=== PATIENT | female | born 1940 ===

== ENCOUNTER 2022-08-19 14:34 | Outpatient (REF) | payer MEDICARE, OTHER, SELFPAY | END 2022-08-19 14:35 | disposition home or self-care (01) | LOC: LBN 14:34 | PROVIDERS: Visit Provider Nurse Practitioner Family | DX: N30.01 Acute cystitis with hematuria (principal) | CPT/HCPCS: 87086 ==

== ENCOUNTER 2022-08-26 12:33 | Observation (INO) | payer MEDICARE, OTHER, SELFPAY ==
[2022-08-26] VITALS (81 sets, daily range): BP systolic 95–133; BP diastolic 38–70; PULSE 75–163; RESP 7–30; TEMP 37.4–38.3; O2SAT 93–96
--- NOTE | 2022-08-26 12:15 | RT.EKG_ITS ---
APPROVED REPORT Exam: Resting ECG Reason for Exam: Rapid heart rate Patient Location: E HR:158 bpm ECG Measurements Heart Rate 158 AXIS NM [id number] P 0 QRSd 88 QRS 142 QT 289 T 36 QTc 469 Conclusion Supraventricular tachycardia...V-rate>(220-age), QRSd<120 SVT VS AFlutter
--- NOTE | 2022-08-26 12:45 | DI.RAD_ITS ---
Exam(s) XR PORTABLE CHEST AP EXAM: XR PORTABLE CHEST AP CLINICAL HISTORY: presyncope. TECHNIQUE: 2D digital imaging was performed. COMPARISON: No exams were available for comparison FINDINGS: Single AP portable view. Heart size is upper normal. The mediastinum is not widened. Lungs are clear. No infiltrates nor obvious pleural effusions. No fractures evident. IMPRESSION: No acute pulmonary findings on this single AP portable view of the chest. DATA REPOSITORY: RADIATION DOSE DELIVERED:
[2022-08-26] MEDS: Metoprolol 5 MG/5 ML VIAL IVP (12:54)
[2022-08-26] MEDS: Metoprolol 50 MG TAB PO (12:54)
[2022-08-26] MEDS: Normal Saline 500 ML IV (12:55)
--- NOTE | 2022-08-26 13:00 | RT.EKG_ITS ---
APPROVED REPORT Exam: Resting ECG Reason for Exam: dysrhythmia Patient Location: E HR:81 bpm ECG Measurements Heart Rate 81 AXIS NV 185 P 46 QRSd 89 QRS 113 QT 371 T 67 QTc 430 Conclusion Sinus rhythm...normal P axis, V-rate 60- 99 Probable left atrial enlargement...P >50mS, <-0.10mV V1 Anteroseptal infarct, age indeterminate...Q >35mS, T neg, V1-V2
[2022-08-26 13:18] LABS: Absolute Basophil Count 0.04 10^3/uL (0.0-0.2); Absolute Lymphocyte Count 0.22 10^3/uL (1.2-3.4); Absolute Monocyte Count 0.72 10^3/uL (0.1-0.8); Basophils % 0.2; Eosinophils % 0.7; HCT 41.9 % (36.0-46.0); HGB 14.1 g/dL (11.2-15.7); Lymphocytes % 1.1; MCH 32.4 pg (27.0-33.0); MCHC 33.7 % (32.0-36.0); MCV 96 fL (80-95); MPV 10.8 fL (8.0-11.0); Monocytes % 3.6; Neutrophils % 93.4; Platelet Count 154 10^3/uL (130-400); RBC 4.35 10^6/uL (3.93-5.22); RDW 12.4 % (11.7-14.6); RDW-SD 44.5 fL; WBC 20.13 10^3/uL (4.4-10.8)
[2022-08-26 13:19] LABS: Absolute Eosinophil Count 0.14 10^3/uL (0.0-0.7)
[2022-08-26 13:43] LABS: ALT 25 U/L (14-59); AST 27 U/L (15-37); Albumin 3.4 g/dL (3.4-5.0); Alkaline Phosphatase 66 U/L (46-116); Anion Gap 9.3 mmol/L (3-11); BUN 15 mg/dL (7-18); Bilirubin, Total 0.8 mg/dL (0.2-1.0); CO2 26.7 mmol/L (21.0-32.0); Calcium 8.8 mg/dL (8.5-10.1); Chloride 99 mmol/L (98-107); Estimated GFR 56.25 (mL/min/1.73m2); Glucose 144 mg/dL (74-106); Magnesium 1.8 mg/dL (1.8-2.4); Sodium 135 mmol/L (136-145); TSH (W/Ref FT4) 1.43 uIU/mL (0.36-3.74); Total Protein 7.4 g/dL (6.4-8.2); Troponin I < 50 ng/L (<or=60)
--- NOTE | 2022-08-26 13:45 | DI.CT_ITS ---
Exam(s) CT CHEST PE CTA EXAM: CT CHEST PE CTA CLINICAL HISTORY: elevated ddimer, tachycardia. TECHNIQUE: Imaging Protocol: CT angiography of the chest was performed using pulmonary embolus wilmer col. Multi planar reconstructions were performed. CONTRAST MATERIAL: Intravenous: Omnipaque 350 Contrast volume: 100 cc COMPARISON: CR XR PORTABLE CHEST AP from 08/26/2022 FINDINGS: CHEST: PULMONARY ARTERIES: There are no intraluminal filling defects to suggest acute pulmonary emboli. LUNGS: There is some infiltrate in the inferior lingular segment of the left lung. This appears to b e superimposed upon interstitial disease findings in the lower lobe basal segments. There are no ple ural effusions evident. No significant focal findings in trachea and mainstem bronchi. MEDIASTINUM: No hilar adenopathy. Enlarged subcarinal lymph nodes noted. Visualized thyroid unremar kable. CARDIAC: Heart size is upper normal. There is no pericardial effusion.Caliber of the thoracic aorta is within normal limits. There is no significant shift of the interventricular septum. PARTIALLY VISUALIZED UPPERMOST ABDOMEN: No obvious findings OSSEOUS: No significant osseous lesions.. IMPRESSION: 1. No evidence of acute pulmonary emboli. 2. Small area of infiltrate noted in the lingular segment of the left lung. No pleural effusions. 3. No intrathoracic adenopathy evident. Discussed with ER physician. RADIATION DOSE DELIVERED: 186.09mGy.cm Total DLP DATA REPOSITORY: All CT scans at this facility are submitted to the National Radiology Data Registry (NRDR) Dose Index Registry (DIR) with the [employer] (ACR). RADIATION OPTIMIZATION: All CT scans at this facility use at least one of these dose optimization te chniques: automated exposure control; mA and/or kV adjustment per patient size (includes targeted exa ms where dose is matched to clinical indication); or iterative reconstruction.
[2022-08-26 13:52] LABS: D-Dimer 985 ng/mlFEU (<500)
[2022-08-26 15:18] LABS: Bilirubin Negative (Negative); Blood Trace-intact (Negative); Clarity Clear (Clear); Glucose Negative (Negative); Ketones Trace mg/dL (Negative); Leukocyte Esterase Negative (Negative); Nitrite Negative (Negative); Urobilinogen 0.2 mg/dL (Up to 0.2); pH 7.5 (5-8)
[2022-08-26 15:28] LABS: Bacteria Rare HPF (Negative); C & S Indicated? No; Casts Negative LPF (Negative); Crystals Negative HPF (Negative); Epithelial Cells Rare HPF (Negative); Mucus Negative (Negative); Other Cells Rare Transitional (Negative); RBC 0-2 HPF (0-2); WBC 0-2 HPF (0-5)
[2022-08-26] MEDS: cefTRIAXone 2 GM/50 ML BAG IVPB (15:37)
[2022-08-26] MEDS: Acetaminophen 325 MG TAB 650 MG PO (15:37)
[2022-08-26] MEDS: Azithromycin 250 MG TAB 500 MG PO (15:37)
[2022-08-26 16:16] LABS: Lactate 1.7 mmol/L (0.6-1.4)
--- NOTE | 2022-08-26 16:18 | ED.GENADUL_ITS ---
Discharge Plan Disposition Patient Disposition: Admit to [facility] Discharge Details Clinical Impression: Atrial flutter, Lingular pneumonia, Pre-syncope Admit Date/Time: 08/26/22 15:49 Admit Provider: Winston áSnchez Attending Provider: Winston Sánchez Primary Care Provider: Unknown,Unknown ED Provider: Hilda Joyce Discharge Data Discharge Date/Time-TO BE ENTERED AT DEPARTURE: 08/26/22 16:58 Medical Decision Making 81-year-old female with majority of her care comfortably with primary care session presents for report of presyncopal event, presents tachycardic, history of a flutter milligrams of IV metoprolol administered patient 15 mg p.o. which she reports patient is in normal sinus rhythm, blood pressure stable Lungs clear to auscultation, alert and oriented, appears weak and tired, cardiac rate initially tachycardic and irregular, no murmur, no peripheral edema, no calf swelling or tenderness, distal pulses intact, no abdominal tenderness, no rebound or guarding Chest x-ray I was ordered initially for further evaluation and does not show evidence of acute abnormality, D-dimer was elevated so did order CTA of patient's chest patient is a prior Dr. Anaya interpretation and discussion Leukocytosis, 29, left shift 18, lactate pending Temperature on reassessment 102 tympanically We will order IV antibiotics, ceftriaxone and azithromycin Agreeable to admission at this time, wishes to be full code but declines any extensive resuscitation HPI General Date/Time Provider Initiated Documentation: 08/26/22 12:46 . HPI Narrative: This 81-year-old female with past medical history of hypertension and atrial flutter presents with report of fever today followed by presyncopal event, significant tachycardia reported by EMS. States recently treated for urinary tract infection on Macrobid which she completed yesterday. Currently having palpitations but denies any chest pain or shortness of breath. Denies any nausea or vomiting. Denies any urinary complaints or abdominal pain. States she feels very weak. Reports chills. Related Data Home Medications Medication Instructions Recorded Confirmed amlodipine 5 mg tablet 5 mg PO DAILY 08/26/22 08/26/22 metoprolol tartrate 25 mg tablet 25 mg PO DAILY 08/26/22 08/26/22 olmesartan 20 mg tablet 20 mg PO DAILY 08/26/22 08/26/22 cefpodoxime 200 mg tablet 200 mg PO BID #10 tabs 08/27/22 Previous Rx's Medication Instructions Recorded cefpodoxime 200 mg tablet 200 mg PO BID #10 tabs 08/27/22 Allergies Allergy/AdvReac Type Severity Reaction Status Date / Time doxycycline AdvReac Unverified 08/26/22 12:50 General Stated Complaint: Arrhythmia DEMETRIUS: 2 PFSH All Active Problems (Updated 08/27/22 @ 23:28 by DIONI Perrin) Loose stools (Acute) Pre-syncope (Acute) Lingular pneumonia (Acute) Essential hypertension (Acute) Atrial flutter (Acute) Social History Smoking/Tobacco Use Status: Former Tobacco Use Quit Date: 02/16/74 Smoking risk assessment performed?: Yes Alcohol Intake: current Alcohol Intake frequency: holidays/special occasions on ly Drug use: Never Substance use type: does not use Housing: apartment Do you feel safe at home: Yes Do you feel safe in your relationship?: Yes Course Vital Signs Vital signs: Vital Signs Pulse 158 H 08/26/22 12:37 Respiratory Rate 18 08/26/22 12:37 Blood Pressure 122/70 08/26/22 12:37 Pulse Oximetry 95 08/26/22 12:37 Pulse 160 H 08/26/22 12:54 Respiratory Rate 18 08/26/22 12:37 Respiratory Effort Normal 08/26/22 14:07 Blood Pressure 122/70 08/26/22 12:54 Blood Pressure Position Supine 08/26/22 12:37 Pulse Oximetry 95 08/26/22 12:37 Oxygen Delivery Method Room Air 08/26/22 12:37 Oxygen Flow Rate 0 08/26/22 12:37 Lab/Test Results Lab/Test Results: 08/26/22 14:15 Blood Blood Culture - Pending 08/26/22 14:00 Blood Blood Culture - Pending Laboratory Tests Range/Units 08/26/22 08/26/22 08/26/22 13:00 13:00 13:00 WBC (4.4-10.8) 10^3/uL 20.13 H RBC (3.93-5.22) 10^6/uL 4.35 Hgb (11.2-15.7) g/dL 14.1 Hct (36.0-46.0) % 41.9 MCV (80-95) fL 96 H MCH (27.0-33.0) pg 32.4 MCHC (32.0-36.0) % 33.7 RDW (11.7-14.6) % 12.4 Plt Count (130-400) 10^3/uL 154 MPV (8.0-11.0) fL 10.8 Immature Gran % 1.0 Neutrophils % 93.4 Lymphocytes % 1.1 Monocytes % 3.6 Eosinophils % 0.7 Basophils % 0.2 Nucleated RBC % (0.0-0.3) % 0.0 Absolute Neutrophils (1.2-6.7) 10^3/uL 18.80 H Absolute Lymphocytes (1.2-3.4) 10^3/uL 0.22 L Absolute Monocytes (0.1-0.8) 10^3/uL 0.72 Absolute Eosinophils (0.0-0.7) 10^3/uL 0.14 Absolute Basophils (0.0-0.2) 10^3/uL 0.04 D-Dimer (<500) ng/mlFEU 985 H Sodium (136-145) mmol/L 135 L Potassium (3.5-5.1) mmol/L 4.0 Chloride (98-107) mmol/L 99 Carbon Dioxide (21.0-32.0) mmol/L 26.7 Anion Gap (3-11) mmol/L 9.3 BUN (7-18) mg/dL 15 Creatinine (0.55-1.02) mg/dL 1.0 Est GFR (CKD-EPI 2020) (mL/min/1.73m2) 56.25 Glucose (74-106) mg/dL 144 H Calcium (8.5-10.1) mg/dL 8.8 Magnesium (1.8-2.4) mg/dL 1.8 Total Bilirubin (0.2-1.0) mg/dL 0.8 AST (15-37) U/L 27 ALT (14-59) U/L 25 Alkaline Phosphatase (46-116) U/L 66 Troponin I (<or=60) ng/L < 50 Total Protein (6.4-8.2) g/dL 7.4 Albumin (3.4-5.0) g/dL 3.4 TSH (0.36-3.74) uIU/mL 1.43 Urine Color (Yellow) Urine Clarity (Clear) Urine pH (5-8) Ur Specific [place] (1.005-1.025) Urine Protein (Negative) mg/dL Urine Ketones (Negative) mg/dL Urine Blood (Negative) Urine Nitrite (Negative) Urine Bilirubin (Negative) Urine Urobilinogen (Up to 0.2) mg/dL Ur Leukocyte Esterase (Negative) Urine RBC (0-2) HPF Urine WBC (0-5) HPF Ur Epithelial Cells (Negative) HPF Urine Crystals (Negative) HPF Urine Bacteria (Negative) HPF Urine Casts (Negative) LPF Urine Mucus (Negative) Urine Other (Negative) Ur Culture Indicated? Urine Glucose (Negative) mg/dL Range/Units 08/26/22 14:59 WBC (4.4-10.8) 10^3/uL RBC (3.93-5.22) 10^6/uL Hgb (11.2-15.7) g/dL Hct (36.0-46.0) % MCV (80-95) fL MCH (27.0-33.0) pg MCHC (32.0-36.0) % RDW (11.7-14.6) % Plt Count (130-400) 10^3/uL MPV (8.0-11.0) fL Immature Gran % Neutrophils % Lymphocytes % Monocytes % Eosinophils % Basophils % Nucleated RBC % (0.0-0.3) % Absolute Neutrophils (1.2-6.7) 10^3/uL Absolute Lymphocytes (1.2-3.4) 10^3/uL Absolute Monocytes (0.1-0.8) 10^3/uL Absolute Eosinophils (0.0-0.7) 10^3/uL Absolute Basophils (0.0-0.2) 10^3/uL D-Dimer (<500) ng/mlFEU Sodium (136-145) mmol/L Potassium (3.5-5.1) mmol/L Chloride (98-107) mmol/L Carbon Dioxide (21.0-32.0) mmol/L Anion Gap (3-11) mmol/L BUN (7-18) mg/dL Creatinine (0.55-1.02) mg/dL Est GFR (CKD-EPI 2020) (mL/min/1.73m2) Glucose (74-106) mg/dL Calcium (8.5-10.1) mg/dL Magnesium (1.8-2.4) mg/dL Total Bilirubin (0.2-1.0) mg/dL AST (15-37) U/L ALT (14-59) U/L Alkaline Phosphatase (46-116) U/L Troponin I (<or=60) ng/L Total Protein (6.4-8.2) g/dL Albumin (3.4-5.0) g/dL TSH (0.36-3.74) uIU/mL Urine Color (Yellow) Yellow Urine Clarity (Clear) Clear Urine pH (5-8) 7.5 Ur Specific [place] (1.005-1.025) 1.010 Urine Protein (Negative) mg/dL Negative Urine Ketones (Negative) mg/dL Trace H Urine Blood (Negative) Trace-intact H Urine Nitrite (Negative) Negative Urine Bilirubin (Negative) Negative Urine Urobilinogen (Up to 0.2) mg/dL 0.2 Ur Leukocyte Esterase (Negative) Negative Urine RBC (0-2) HPF 0-2 Urine WBC (0-5) HPF 0-2 Ur Epithelial Cells (Negative) HPF Rare Urine Crystals (Negative) HPF Negative Urine Bacteria (Negative) HPF Rare Urine Casts (Negative) LPF Negative Urine Mucus (Negative) Negative Urine Other (Negative) Rare Transitional Ur Culture Indicated? No Urine Glucose (Negative) mg/dL Negative Critical Care Time Critical Care Time Attestation: Approximately 45 minutes of critical care time secondary to antibiotics, admission to the hospital, diagnostic lab interpretation, diagnostic imaging interpretation, metoprolol for atrial fibrillation, RVR, oral metoprolol, telemetry monitoring PAWSS Have you Been Recently Intoxicated or Drunk Within the Last 30 days?: No Have you Ever Experienced Previous Episodes of Alcohol Withdrawal?: No Have you ever Experienced Withdrawal Seizures?: No Have you ever Experienced Delirium Tremens(DT)s?: No Have you ever undergone Alcohol Rehabilitation Treatment (i.e, inpt ot outpatient treatment programs)?: No Have you ever Experienced Blackouts?: No Have you ever Combined Alcohol with other Downers within the last 90 days?: No Have you ever Combined Alcohol with any other Substance of Abuse during the last 90 days?: No Result: 0
[2022-08-26 16:24] LABS: Source Nasal/Nares
[2022-08-26 16:44] LABS: Troponin I < 50 ng/L (<or=60)
[2022-08-26 17:06] LABS: COVID-19 PCR Negative (Negative)
--- NOTE | 2022-08-26 18:42 | W.PM.HP.N ---
Date of service: 08/26/22 Time of Service: 18:42 Assessment and Plan Assessment and plan (1) Atrial flutter: Status: Acute Assessment and plan: She has short paroxysms of palpitations occasionally. Cont her home daily metoprolol 25mg. PRN IV lopressor 2.5mg Q4H prn HR > 110. She is receiving IV LR at 150ml/hr for 1L. Electrolyes were normal. Telemetry. (2) Essential hypertension: Status: Acute Assessment and plan: Cont amlodipine and metoprolol. She takes olmesartab but it isn't formulary and she doesn't have it with her. BP is controlled currently so will not give a substitute ARB at this time. Monitor. (3) Lingular pneumonia: Status: Acute Assessment and plan: Fever, WBC count of 20.13. No shortness of air, hypoxemia, cough. Cont rocephin and azithromycin. Anticipate d/c to home tomorrow on oral antibiotic. (4) Pre-syncope: Status: Acute Assessment and plan: Related to aflutter with rapid ventricular response and PNA. Given acetaminophen and feeling much better. Receiving 1L LR. History of Present Illness History of Present Illness Chief Complaint: Presyncope, fever Narrative: This is an 81 yo female with a PMH of HTN, paroxysmal aflutter. She noted developing a fever on day of admission and subsequently felt like she was going to passout. She did not have a syncopal episode. She did not palpitations. EMS noted tachycardia. She had no cough/congestion, shortness of air, N/V/abd pain, dysuria or urinary frequency. HR was 156. EKG showed SVT vs Aflutter. WBC count 20.13. Hgb 14.1. Lactate 1.7. Creatinine 1.0. Troponin negative. CXR w/o acute findings. CT chest No evidence of acute pulmonary emboli. Small area of infiltrate noted in the lingular segment of the left lung.? No pleural effusions. She was administered oral and IV metoprolol and her rate improved into the 80's-90's. She was not experiencing any presyncopal symptoms. Review of Systems All systems reviewed & are unremarkable except as noted in HPI and below PFSH All Active Problems (Updated 08/26/22 @ 19:05 by Winston Sánchez MD) Pre-syncope (Acute) Lingular pneumonia (Acute) Essential hypertension (Acute) Atrial flutter (Acute) Social History Smoking/Tobacco Use Status: Former Tobacco Use Quit Date: 02/16/74 Smoking risk assessment performed?: Yes Alcohol Intake: current Alcohol Intake frequency: holidays/special occasions only Drug use: Never Substance use type: does not use Housing: apartment Do you feel safe at home: Yes Do you feel safe in your relationship?: Yes Meds Allergies and Home Medications Allergies Allergy/AdvReac Type Severity Reaction Status Date / Time doxycycline AdvReac Unverified 08/26/22 12:50 Home Medications Medication Instructions Recorded Confirmed Type amlodipine 5 mg tablet 5 mg PO DAILY 08/26/22 08/26/22 History metoprolol tartrate 25 mg tablet 25 mg PO DAILY 08/26/22 08/26/22 History olmesartan 20 mg tablet 20 mg PO DAILY 08/26/22 08/26/22 History Exam Narrative Exam Narrative: Gen: Very pleasant female sitting on edge of bed. Conversant. HEENT: sclera clear. MMM. Neck: small submandibular lymph nodes; NT. Lungs: clear. Good air excursion. Nonlabored breathing. CV: RRR Exts: No edema, calf tenderness. Psych: A&O x 3. Affect appropriate. Good insight. Results Labs 08/26/22 13:00 08/26/22 13:00 Labs: Laboratory Results - last 24 hr 08/26/22 08/26/22 08/26/22 13:00 13:00 13:00 WBC 20.13 H RBC 4.35 Hgb 14.1 Hct 41.9 MCV 96 H MCH 32.4 MCHC 33.7 RDW 12.4 Plt Count 154 MPV 10.8 Immature Gran % 1.0 Neutrophils % 93.4 Lymphocytes % 1.1 Monocytes % 3.6 Eosinophils % 0.7 Basophils % 0.2 Nucleated RBC % 0.0 Absolute Neutrophils 18.80 H Absolute Lymphocytes 0.22 L Absolute Monocytes 0.72 Absolute Eosinophils 0.14 Absolute Basophils 0.04 D-Dimer 985 H VBG Lactate Sodium 135 L Potassium 4.0 Chloride 99 Carbon Dioxide 26.7 Anion Gap 9.3 BUN 15 Creatinine 1.0 Est GFR (CKD-EPI 2020) 56.25 Glucose 144 H Calcium 8.8 Magnesium 1.8 Total Bilirubin 0.8 AST 27 ALT 25 Alkaline Phosphatase 66 Troponin I < 50 Total Protein 7.4 Albumin 3.4 TSH 1.43 Urine Color Urine Clarity Urine pH Ur Specific [place] Urine Protein Urine Ketones Urine Blood Urine Nitrite Urine Bilirubin Urine Urobilinogen Ur Leukocyte Esterase Urine RBC Urine WBC Ur Epithelial Cells Urine Crystals Urine Bacteria Urine Casts Urine Mucus Urine Other Ur Culture Indicated? Urine Glucose COVID-19 Source SARS-CoV-2 (PCR) 08/26/22 08/26/22 08/26/22 14:59 16:07 16:07 WBC RBC Hgb Hct MCV MCH MCHC RDW Plt Count MPV Immature Gran % Neutrophils % Lymphocytes % Monocytes % Eosinophils % Basophils % Nucleated RBC % Absolute Neutrophils Absolute Lymphocytes Absolute Monocytes Absolute Eosinophils Absolute Basophils D-Dimer VBG Lactate 1.7 H Sodium Potassium Chloride Carbon Dioxide Anion Gap BUN Creatinine Est GFR (CKD-EPI 2020) Glucose Calcium Magnesium Total Bilirubin AST ALT Alkaline Phosphatase Troponin I < 50 Total Protein Albumin TSH Urine Color Yellow Urine Clarity Clear Urine pH 7.5 Ur Specific [place] 1.010 Urine Protein Negative Urine Ketones Trace H Urine Blood Trace-intact H Urine Nitrite Negative Urine Bilirubin Negative Urine Urobilinogen 0.2 Ur Leukocyte Esterase Negative Urine RBC 0-2 Urine WBC 0-2 Ur Epithelial Cells Rare Urine Crystals Negative Urine Bacteria Rare Urine Casts Negative Urine Mucus Negative Urine Other Rare Transitional Ur Culture Indicated? No Urine Glucose Negative COVID-19 Source SARS-CoV-2 (PCR) 08/26/22 16:12 WBC RBC Hgb Hct MCV MCH MCHC RDW Plt Count MPV Immature Gran % Neutrophils % Lymphocytes % Monocytes % Eosinophils % Basophils % Nucleated RBC % Absolute Neutrophils Absolute Lymphocytes Absolute Monocytes Absolute Eosinophils Absolute Basophils D-Dimer VBG Lactate Sodium Potassium Chloride Carbon Dioxide Anion Gap BUN Creatinine Est GFR (CKD-EPI 2020) Glucose Calcium Magnesium Total Bilirubin AST ALT Alkaline Phosphatase Troponin I Total Protein Albumin TSH Urine Color Urine Clarity Urine pH Ur Specific [place] Urine Protein Urine Ketones Urine Blood Urine Nitrite Urine Bilirubin Urine Urobilinogen Ur Leukocyte Esterase Urine RBC Urine WBC Ur Epithelial Cells Urine Crystals Urine Bacteria Urine Casts Urine Mucus Urine Other Ur Culture Indicated? Urine Glucose COVID-19 Source Nasal/Nares SARS-CoV-2 (PCR) Negative Last Vital Signs Temp 38.3 C H 08/26/22 17:15 Pulse 89 08/26/22 17:26 Resp 18 08/26/22 17:15 BP 121/65 08/26/22 17:15 Pulse Ox 93 08/26/22 17:15 PAWSS Have you Been Recently Intoxicated or Drunk Within the Last 30 days?: No Have you Ever Experienced Previous Episodes of Alcohol Withdrawal?: No Have you ever Experienced Withdrawal Seizures?: No Have you ever Experienced Delirium Tremens(DT)s?: No Have you ever undergone Alcohol Rehabilitation Treatment (i.e, inpt ot outpatient treatment programs)?: No Have you ever Experienced Blackouts?: No Have you ever Combined Alcohol with other Downers within the last 90 days?: No Have you ever Combined Alcohol with any other Substance of Abuse during the last 90 days?: No Result: 0 Time Spent Time spent with Patient: 40-54 minutes Time was spent: preparing to see the patient(eg.review tests), obtaining and/or reviewing separately otained hiistory, ordering medications,tests, procedures, referring, communicating with other health patient care manager, indepentently interpreting results and counseling the patient
[2022-08-26] MEDS: Acetaminophen 325 MG TAB PO (19:43)
[2022-08-26] MEDS: Zolpidem 5 MG TAB 2.5 MG PO (21:18)
[2022-08-26] MEDS: Lactated Ringers 1,000 ML 150 ML IV (21:18)
[2022-08-27] VITALS (15 sets, daily range): BP systolic 96–131; BP diastolic 53–67; PULSE 83–152; RESP 16–18; TEMP 37.2–37.4; O2SAT 86–94
[2022-08-27] MEDS: cefTRIAXone 2 GM/50 ML BAG IVPB (06:00)
[2022-08-27 07:29] LABS: Abs Immature Grans 0.06 10^3/uL (0.0-0.06); Absolute Basophil Count 0.02 10^3/uL (0.0-0.2); Absolute Eosinophil Count 0.27 10^3/uL (0.0-0.7); Absolute Lymphocyte Count 0.71 10^3/uL (1.2-3.4); Absolute Monocyte Count 0.46 10^3/uL (0.1-0.8); Absolute Neutrophil Count 9.43 10^3/uL (1.2-6.7); Basophils % 0.2; Eosinophils % 2.5; HCT 35.6 % (36.0-46.0); HGB 11.8 g/dL (11.2-15.7); Immature Grans % 0.5; Lymphocytes % 6.5; MCH 32.1 pg (27.0-33.0); MCHC 33.1 % (32.0-36.0); MCV 97 fL (80-95); Monocytes % 4.2; Neutrophils % 86.1; Platelet Count 134 10^3/uL (130-400); RBC 3.68 10^6/uL (3.93-5.22); RDW 12.7 % (11.7-14.6); RDW-SD 45.5 fL; WBC 10.95 10^3/uL (4.4-10.8)
[2022-08-27] MEDS: Metoprolol 25 MG TAB PO (07:46)
[2022-08-27] MEDS: Acetaminophen 325 MG TAB PO (07:46)
[2022-08-27] MEDS: Azithromycin 250 MG TAB 500 MG PO (07:46)
[2022-08-27] MEDS: amLODIPine 5 MG TAB PO (07:47)
[2022-08-27] MEDS: Normal Saline 250 ML 500 ML IV (08:11)
[2022-08-27] MEDS: Normal Saline 250 ML IV (09:05)
--- NOTE | 2022-08-27 09:33 | PDOC.CMIN ---
Date of service: 08/27/22 Time of Service: 09:33 Care Management Initial Assmt Initial Assessment REASON FOR HOSPITALIZATION:: atrial flutter PREVIOUS FUNCTIONAL STATUS/SOCIAL/FAMILY SUPPORTS:: Shahnaz lives in [place], [place]. but has a camp in [place] where she spends time in the summer. She is . Shahnaz has 4 children who all live in different locales; one is in [place], one in [place], one in [place] and one in [place]. Shahnaz's late was a diplomat and they lived all over the world, including [place] and [place]. She shared that it was an interesting and exciting life. Shahnaz is independent at baseline and does not receive any community services. CURRENT FUNCTIONAL STATUS:: Shahnaz was sitting up in bed when CM met with her. She was pleasant in interaction and agreeable to conversation. 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 At baseline she is healthy and active and enjoys spending time at her camp in [place]. Shahnaz shared that she hopes to be discharged later today. This is the first time she has ever been hospitalized and stated that she has had a good experience at [facility]. ADVANCE DIRECTIVES:: none on file Has patient been provided with info about the portal/API?: No Did the patient sign up for the portal?: No CODE STATUS:: Full Code INSURANCE COVERAGE / FINANCIAL ISSUES:: Medicare Foreign Service Benefit Plan CURRENT HOME/COMMUNITY SERVICES/EQUIPMENT:: none PRIMARY CARE PHYSICIAN:: none local POTENTIAL DISCHARGE NEEDS:: follow up with community providers and plan of care PATIENT/FAMILY EDUCATION NEEDS:: Review of discharge instructions, limitations, activity, diet, medications, follow up plan, discuss Ask Me Three TRANSPORTATION:: via private vehicle with daughter PLAN:: Anticipate Shahnaz will be discharged to her daughter's home in [place] with no new services. She will follow up with her community providers and plan of care and transport with family. CM will follow and assess for discharge planning concerns. PFSH All Active Problems (Updated 08/26/22 @ 19:05 by Winston Sánchez MD) Pre-syncope (Acute) Lingular pneumonia (Acute) Essential hypertension (Acute) Atrial flutter (Acute) Social History Smoking/Tobacco Use Status: Former Tobacco Use Quit Date: 02/16/74 Smoking risk assessment performed?: Yes Alcohol Intake: current Alcohol Intake frequency: holidays/special occasions only Drug use: Never Substance use type: does not use Housing: apartment Do you feel safe at home: Yes Do you feel safe in your relationship?: Yes
[2022-08-27 11:28] LABS: C Diff PCR Negative (Negative)
--- NOTE | 2022-08-27 13:20 | CMDISCH_ITS ---
Date of service: 08/27/22 Time of Service: 13:20 LACE Index Scoring Tool Questions: Length of Stay (in days): 1 Was the patient admitted via the E.D.?: Yes E.D. Visits: 1 Answers: Total Score: 5 Risk of Readmission: Low Risk Care Management Discharge Plan Reason for Hospitalization: atrial flutter Discharge Plan: Anticipate Shahnaz will be discharged to her daughter's home in [place] with no new services. She will follow up with her community providers and plan of care and transport with family. CM will follow and assess for discharge planning concerns. Patient/Family Education Needs: Review of discharge instructions, limitations, activity, diet, medications, follow up plan, discuss Ask Me Three
--- NOTE | 2022-08-27 13:27 | DSE_ITS ---
Date of service: 08/27/22 Time of Service: 13:30 DS: Diagnosis Discharge Diagnosis (1) Atrial flutter: Status: Acute Asessment and Plan: She converted to NSR soon after admission. In the night she did have a period of SVT that was brief and then back to NSR Cont metoprolol. Maintain adequate hydration. LIkely related to mild dehydration and current pneumonia. (2) Essential hypertension: Status: Acute Asessment and Plan: Cont home meds: metoprolol, Olmesartan, amlodapine. (3) Lingular pneumonia: Status: Acute Asessment and Plan: Initiated on Rocephin and oral azithromycin; received 2 doses of each. WBC count near normal at 10.95 on day of discharge. Initial WBC count of 20.13. Home on a 5 day course of cefpodoxime 200mg BID. (4) Pre-syncope: Status: Acute Asessment and Plan: Related to rapid afib/flutter. No recurrence. Cont metoprolol for rate control. Not on anticoagulation; can discuss this with PCP. (5) Loose stools: Status: Acute Asessment and Plan: Loose stools. Onset in the morning on day of discharge. X3 stools then stopped. C.Diff negative. If recurs, immodium could be helpful. Maintain good fluid replacement if this does become more of an issue. Discharge Plan Disposition Patient Disposition: Home Condition: Improving Discharge Details Reason For Visit: Pneumonia Admit Date/Time: 08/26/22 15:49 Admit Provider: Winston Sánchez Attending Provider: Winston Sánchez Primary Care Provider: Unknown,Unknown Hospital Course Hospital Course: This is an 81 yo female with a PMH of HTN, paroxysmal aflutter.? She noted developing a fever on day of admission and subsequently felt like she was going to passout.? She did not have a syncopal episode.? She did not palpitations.? EMS noted tachycardia. She had no cough/congestion, shortness of air, N/V/abd pain, dysuria or urinary frequency. HR was 156.? EKG showed SVT vs Aflutter. WBC count 20.13. Hgb 14.1.? Lactate 1.7. Creatinine 1.0. Troponin negative. CXR w/o acute findings.? CT chest?No evidence of acute pulmonary emboli. Small area of infiltrate noted in the lingular segment of the left lung.? No pleural effusions. She was administered oral and IV metoprolol and her rate improved into the 80's-90's.? She was not experiencing any presyncopal symptoms. See Diagnosis Home Meds and New Rx's Prescriptions: New cefpodoxime 200 mg tablet 200 mg PO BID Qty: 10 0RF Rx Instructions: must administer with a meal/food First dose the morning of 08/28/22. Continued amlodipine 5 mg Tablet 5 mg PO DAILY olmesartan 20 mg Tablet 20 mg PO DAILY metoprolol tartrate 25 mg Tablet 25 mg PO DAILY Discharge Instructions Instructions: Community Acquired Pneumonia (GEN) Activity:: Activity as Tolerated Equipment/Supplies:: No Equipment Needed Diet:: Resume usual diet Discharge Orders Discharge Orders: Discharge Order (Routine); Ordered 08/27/22 Ordered By: Winston Sánchez DS: Summary Time Spent with Patient providing and/or coordinating discharge services: Greater than 30 minutes Status at Discharge Functional status at discharge: independent ambulation Overall status at discharge: patient is progressing back to baseline Mental Status: mental status grossly normal Speech and Movement: speech and movement normal Mood: congruent mood Affect: normal affect Exam Narrative Exam Narrative: Gen: Very pleasant female sitting in chair. NAD HEENT: sclera clear. MMM. Neck: small submandibular lymph nodes; NT. Lungs: clear. Good air excursion. Nonlabored breathing. CV: RRR Exts: No edema, calf tenderness. Psych: A&O x 3. Affect appropriate. Good insight. Psych Mental Status: mental status grossly normal Speech and Movement: speech and movement normal Mood: congruent mood Affect: normal affect DS: Data Vitals/I&O Vitals and I&O: Vital Signs Temperature 37.4 C 08/27/22 12:24 Temperature Source Tympanic 08/27/22 12:24 Pulse 83 08/27/22 12:24 Pulse Rhythm Regular 08/27/22 08:00 Pulse 88 08/27/22 01:10 Respiratory Rate 17 08/27/22 12:24 Respiratory Effort Normal, Non-Labored 08/27/22 08:00 Respiratory Depth Normal 08/27/22 08:00 Respiratory Pattern Normal 08/27/22 08:00 Blood Pressure 103/57 L 08/27/22 12:24 Blood Pressure Mean 59 08/26/22 16:45 Blood Pressure Position Supine 08/26/22 12:37 Pulse Oximetry 91 L 08/27/22 12:24 Oxygen Delivery Method Room Air 08/27/22 12:24 Oxygen Flow Rate 0 08/27/22 12:24 Pain Level 0 08/27/22 12:24 Intake & Output 08/26/22 08/27/22 08/27/22 23:59 11:59 23:59 Intake Total 560 / 560 1722.5 / 1722.5 Balance 560 / 560 1722.5 / 1722.5 Weight 51.71 kg Intake: IV 560 / 560 1352.5 / 1352.5 Oral 370 / 370 Data Completed and Pending Labs on day of discharge: Labs from last 24 hours 08/27/22 08/27/22 08/26/22 10:20 06:40 16:12 WBC 10.95 H RBC 3.68 L Hgb 11.8 D Hct 35.6 L MCV 97 H MCH 32.1 MCHC 33.1 RDW 12.7 Plt Count 134 MPV 11.0 Immature Gran % 0.5 Neutrophils % 86.1 Lymphocytes % 6.5 Monocytes % 4.2 Eosinophils % 2.5 Basophils % 0.2 Nucleated RBC % 0.0 Absolute Neutrophils 9.43 H Absolute Lymphocytes 0.71 L Absolute Monocytes 0.46 Absolute Eosinophils 0.27 Absolute Basophils 0.02 D-Dimer VBG Lactate Sodium Potassium Chloride Carbon Dioxide Anion Gap BUN Creatinine Est GFR (CKD-EPI 2020) Glucose Calcium Magnesium Total Bilirubin AST ALT Alkaline Phosphatase Troponin I Total Protein Albumin TSH Urine Color Urine Clarity Urine pH Ur Specific [place] Urine Protein Urine Ketones Urine Blood Urine Nitrite Urine Bilirubin Urine Urobilinogen Ur Leukocyte Esterase Urine RBC Urine WBC Ur Epithelial Cells Urine Crystals Urine Bacteria Urine Casts Urine Mucus Urine Other Ur Culture Indicated? Urine Glucose Stl C.difficile Tox PCR Negative COVID-19 Source Nasal/Nares SARS-CoV-2 (PCR) Negative 08/26/22 08/26/22 08/26/22 16:07 16:07 14:59 WBC RBC Hgb Hct MCV MCH MCHC RDW Plt Count MPV Immature Gran % Neutrophils % Lymphocytes % Monocytes % Eosinophils % Basophils % Nucleated RBC % Absolute Neutrophils Absolute Lymphocytes Absolute Monocytes Absolute Eosinophils Absolute Basophils D-Dimer VBG Lactate 1.7 H Sodium Potassium Chloride Carbon Dioxide Anion Gap BUN Creatinine Est GFR (CKD-EPI 2020) Glucose Calcium Magnesium Total Bilirubin AST ALT Alkaline Phosphatase Troponin I < 50 Total Protein Albumin TSH Urine Color Yellow Urine Clarity Clear Urine pH 7.5 Ur Specific [place] 1.010 Urine Protein Negative Urine Ketones Trace H Urine Blood Trace-intact H Urine Nitrite Negative Urine Bilirubin Negative Urine Urobilinogen 0.2 Ur Leukocyte Esterase Negative Urine RBC 0-2 Urine WBC 0-2 Ur Epithelial Cells Rare Urine Crystals Negative Urine Bacteria Rare Urine Casts Negative Urine Mucus Negative Urine Other Rare Transitional Ur Culture Indicated? No Urine Glucose Negative Stl C.difficile Tox PCR COVID-19 Source SARS-CoV-2 (PCR) 08/26/22 08/26/22 13:00 13:00 WBC RBC Hgb Hct MCV MCH MCHC RDW Plt Count MPV Immature Gran % Neutrophils % Lymphocytes % Monocytes % Eosinophils % Basophils % Nucleated RBC % Absolute Neutrophils Absolute Lymphocytes Absolute Monocytes Absolute Eosinophils Absolute Basophils D-Dimer 985 H VBG Lactate Sodium 135 L Potassium 4.0 Chloride 99 Carbon Dioxide 26.7 Anion Gap 9.3 BUN 15 Creatinine 1.0 Est GFR (CKD-EPI 2020) 56.25 Glucose 144 H Calcium 8.8 Magnesium 1.8 Total Bilirubin 0.8 AST 27 ALT 25 Alkaline Phosphatase 66 Troponin I < 50 Total Protein 7.4 Albumin 3.4 TSH 1.43 Urine Color Urine Clarity Urine pH Ur Specific [place] Urine Protein Urine Ketones Urine Blood Urine Nitrite Urine Bilirubin Urine Urobilinogen Ur Leukocyte Esterase Urine RBC Urine WBC Ur Epithelial Cells Urine Crystals Urine Bacteria Urine Casts Urine Mucus Urine Other Ur Culture Indicated? Urine Glucose Stl C.difficile Tox PCR COVID-19 Source SARS-CoV-2 (PCR) 08/26/22 14:15 Blood Blood Culture - Pending 08/26/22 14:00 Blood Blood Culture - Pending Preliminary micro results at discharge 08/26/22 14:15 Blood Culture - Pending Blood 08/26/22 14:00 Blood Culture - Pending Blood PFSH All Active Problems (Updated 08/27/22 @ 13:49 by Winston Sánchez MD) Loose stools (Acute) Pre-syncope (Acute) Lingular pneumonia (Acute) Essential hypertension (Acute) Atrial flutter (Acute) Social History Smoking/Tobacco Use Status: Former Tobacco Use Quit Date: 02/16/74 Smoking risk assessment performed?: Yes Alcohol Intake: current Alcohol Intake frequency: holidays/special occasions only Drug use: Never Substance use type: does not use Housing: apartment Do you feel safe at home: Yes Do you feel safe in your relationship?: Yes Time Spent with Patient Time Spent with Patient: 45-69 minutes Time was spent: preparing to see the patient(eg.review tests), obtaining and/or reviewing separately otained hiistory, ordering medications,tests, procedures, referring, communicating with other health neonatal intensive care nurse, indepentently interpreting results, counseling the patient and care coordination
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
== END 2022-08-27 16:13 | disposition home or self-care (01) ==
LOC: ER 15:17 → MS 17:05
PROVIDERS: Admitting Provider Family Medicine; Emergency Provider Physician Assistant; Visit Provider Family Medicine
DX: I48.92 Unspecified atrial flutter (principal); R53.1 Weakness; I10 Essential (primary) hypertension; J18.9 Pneumonia, unspecified organism; R55 Syncope and collapse; I47.1 Supraventricular tachycardia; I25.2 Old myocardial infarction; R19.7 Diarrhea, unspecified
CPT/HCPCS: 36415; 71275; 80053; 87040; 87493; 87635; 93005; 96361; 96365; 96374; 96375; 96376; 99291; 71045; 81003; 81015; 83605; 83735; 84443; 84484; 85025; 85379; 93010; 99223; 99239; G0378